=== PATIENT | male | born 1980 | race Caucasian/White ===

== ENCOUNTER 2021-10-05 11:29 | Emergency (ER) | payer MEDICAID ==
[~2021-10-05] VITALS: Ht 188 cm; Wt 65.3 kg
[2021-10-05] MEDS ORDERED: ONDANSETRON HCL/PF 4 MG/2 ML VIAL ONE (12:05)
--- NOTE | 2021-10-05 12:10 | NUR ---
IV LINE IS ESTABLISHED, BLOOD SPECIMEN COLLECTED AND SENT TO THE LAB. THE LINE IS SALINE LOCKED.
[2021-10-05] MEDS ORDERED: HYDROMORPHONE 1 MG/1 ML DISP.SYRIN ONE (12:19)
[2021-10-05] MEDS ORDERED: KETOROLAC TROMETHAMINE 15 MG/ML VIAL ONE (12:20)
[2021-10-05] MEDS ORDERED: IV NS 0.9% 250 ML IV ONE (12:22)
[2021-10-05] MEDS ORDERED: IOHEXOL-300 100 ML VIAL IV ONE (12:22)
--- NOTE | 2021-10-05 12:25 | NUR ---
Pt moved to room ED1, pt complaining of 10/10 abd pain in RLQ, radiating to back. Pt looks a little pale, but well groomed and well built, sig otr states that he is very athletic and healthy. 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 Pt states that his BG was in the 500s for a week and wouldnt come down regardless of how much insulin he took. Very strange case, never heard anythnig about like it.
[2021-10-05 12:27] LABS: BASOPHILS # (AUTO) 0.1 K/uL (0.0-0.2); BASOPHILS % (AUTO) 0.6 % (0.0-2.0); HEMATOCRIT 40 % (39-51); HEMOGLOBIN 12.7 g/dL (13.5-17.5); LYMPHOCYTES # (AUTO) 2.1 K/uL (0.8-4.8); LYMPHOCYTES % (AUTO) 15.8 % (20.0-44.0); MEAN CORPUSCULAR HGB CONC 32 g/dl (31.0-36.0); MEAN CORPUSCULAR VOLUME 86 fL (80-96); MONOCYTES # (AUTO) 0.7 K/uL (0.1-1.30); NEUTROPHILS # (AUTO) 10.3 K/uL (1.8-8.9); NEUTROPHILS % (AUTO) 77.6 % (43.0-81.0); PLATELET COUNT (AUTO) 330 K/uL (150-450); WHITE BLOOD COUNT (AUTO) 13.3 K/uL (4.3-11.0)
[2021-10-05] MEDS ORDERED: ONDANSETRON HCL/PF 4 MG/2 ML VIAL IV ONE (12:30)
[2021-10-05] MEDS ORDERED: IV NS 0.9% 1,000 ML BAG IV ONE (12:30)
[2021-10-05] MEDS ORDERED: KETOROLAC TROMETHAMINE INJ 30 MG/ML VIAL IV ONE (12:30)
[2021-10-05] MEDS ORDERED: HYDROMORPHONE INJ 2 MG/ML DISP.SYRIN IV ONE (12:30)
[2021-10-05 12:37] LABS: CALCIUM, SERUM 9.4 mg/dL (8.5-10.1); CARBON DIOXIDE 25 mmol/L (21-32); CHLORIDE 104 mmol/L (98-107); CREATININE 1.3 mg/dL (0.6-1.3); GLUCOSE 176 mg/dL (74-106); SODIUM SERUM 140 mmol/L (136-145); UREA NITROGEN, BLOOD 15 mg/dL (7-18)
[2021-10-05 12:43] LABS: ALANINE AMINOTRANSFERASE 30 U/L (12-78); ALBUMIN 4.7 g/dL (3.4-5.0); ALKALINE PHOSPHATASE 108 U/L (46-116); ASPARTATE AMINOTRANSFERASE 31 U/L (15-37); BILIRUBIN,DIRECT 0.1 mg/dL (0.0-0.2); BILIRUBIN,TOTAL 0.4 mg/dL (0.2-1.0); LIPASE 65 U/L (73-393); TOTAL PROTEIN, SERUM 8.4 g/dL (6.4-8.2)
--- NOTE | 2021-10-05 13:02 | NUR ---
Pain reassesed. Pt states that he is still very much in pain. 11/03. but that he did get some relief from it.
--- NOTE | 2021-10-05 13:30 | NUR ---
EDMD at bedside to discuss dispo and findings with pt and SO. All questions answered. EDMD agreed to right script for muscle relaxor. Pt informed of pending DC, Pt asked if he can get the rest of his IV soln before dcing the bag. EDMD obliged pt. DC instructions writen, waiting for completion of bolus before DCing home.
[2021-10-05] MEDS ORDERED: CYCL5TAB PO (14:30)
[2021-10-05] MEDS ORDERED: CYCLOBENZAPRINE 10 MG TABLET ONE (14:31)
[2021-10-05 15:06] LABS: BILIRUBIN,URINE NEGATIVE (NEGATIVE); COLOR,URINE YELLOW (YELLOW); LEUKOCYTE ESTERASE ,URINE NEGATIVE (NEGATIVE); NITRITE, URINE NEGATIVE (NEGATIVE); PROTEIN,URINE NEGATIVE (NEGATIVE); UGLUCOSE NEGATIVE (NEGATIVE); UROBILINOGEN,URINE 0.2 EU/dL (0.2)
[2021-10-05 15:11] VITALS: BP 134/78
[2021-10-05 15:37] LABS: BACTERIA,URINE None seen /HPF (None Seen); RBC,URINE 0-2 /HPF (0-2); SQUAMOUS EPITHELIAL CELL,UR 0-2 /HPF (None Seen); WBC,URINE 0-2 /HPF (0-3)
== END 2021-10-05 15:00 | disposition home or self-care (01) ==
LOC: ER 11:35
DX: E11.65 Type 2 diabetes mellitus with hyperglycemia (principal); G89.29 Other chronic pain; M79.10 Myalgia, unspecified site; R11.2 Nausea with vomiting, unspecified; Z79.899 Other long term (current) drug therapy
CPT/HCPCS: 36415; 74177; 80048; 80076; 81001; 82962; 83605; 83690; 84484; 85025; 87086; 96361; 96374; 96375; 99285; J1170; J1885; J2405; J7030; J7050; Q9967

== ENCOUNTER 2025-03-24 16:14 | Emergency (ER) | payer MEDICAID ==
[~2025-03-24] VITALS: Ht 182.9 cm; Wt 71.7 kg
[~2025-03-24 16:14] MED LIST: CYCL5TAB PO
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
--- NOTE | 2025-03-24 16:37 | NUR ---
ACCUCHECK 69, JUICE PROVIDED
[2025-03-24] MEDS ORDERED: LIDOCAINE 5% (PATCH) 1 EA PATCH TP ONE (17:28)
[2025-03-24] MEDS ORDERED: ACETAMINOPHEN 325 MG TABLET ONE (17:29)
--- NOTE | 2025-03-24 17:30 | NUR ---
DOUG Samuels, PA NOTIFIED
[2025-03-24] MEDS: ACETAMINOPHEN 325 MG TABLET PO ONE (17:39)
[2025-03-24] MEDS: LIDOCAINE 5% (PATCH) 1 EA PATCH TP SCH (17:39)
[2025-03-24 18:10] LABS: CALCIUM, SERUM 9.1 mg/dL (8.5-10.1); CREATININE 1.1 mg/dL (0.6-1.3); SODIUM SERUM 141.0 mmol/L (136-145); UREA NITROGEN, BLOOD 17.0 mg/dL (7-18)
[2025-03-24 18:14] LABS: INR 1.01 (0.91-1.10)
[2025-03-24 18:26] LABS: PLATELET COUNT (AUTO) 297 K/uL (150-450); RED BLOOD CELL COUNT(AUTO) 4.56 MIL/uL (4.5-6.0); RED CELL DISTRIBUTION WIDTH 13.7 % (11.5-15.0); WHITE BLOOD COUNT (AUTO) 9.1 K/uL (4.3-11.0)
[2025-03-24 18:40] LABS: APPEARANCE,URINE CLEAR (CLEAR); BLOOD, URINE NEGATIVE Ery/uL (NEGATIVE); LEUKOCYTE ESTERASE ,URINE NEGATIVE (NEGATIVE); NITRITE, URINE NEGATIVE (NEGATIVE); UGLUCOSE NEGATIVE (NEGATIVE)
[2025-03-24 18:46] LABS: ADD URINE CULTURE NO; SQUAMOUS EPITHELIAL CELL,UR 0-2 /HPF (None Seen)
[2025-03-24] MEDS ORDERED: IBUP-1955 PO (18:56)
[2025-03-24] MEDS ORDERED: LIDO30AD10 TP (18:56)
--- NOTE | 2025-03-24 19:19 | NUR ---
pt left without discharge papers, called to inform about presciptions and discharge instructions. pt verbalized understanding
[2025-03-24 19:21] VITALS: BP 155/87; TEMP 98.6; O2SAT 98
== END 2025-03-24 19:21 | disposition home or self-care (01) ==
LOC: ER 16:30
DX: M25.562 Pain in left knee (principal); M79.672 Pain in left foot; M25.512 Pain in left shoulder; R51.9 Headache, unspecified; E10.9 Type 1 diabetes mellitus without complications; V89.2XXA Person injured in unspecified motor-vehicle accident, traffic, initial encounter; Y93.01 Activity, walking, marching and hiking; Y92.410 Unspecified street and highway as the place of occurrence of the external cause; Y99.8 Other external cause status
CPT/HCPCS: 36415; 70450-TC; 72190-TC; 73030-TC; 73564-TC; 73630-TC; 80048-TC; 81001; 82962-TC; 85025-TC; 85610-TC; 85730-TC